=== PATIENT | female | born 1955 | race Asian ===

== ENCOUNTER → 2020-12-21 17:00 | Outpatient (CLI) | payer OTHER, SELFPAY ==
--- NOTE | ~2020-12-21 | MR_ITS ---
EXAMINATION: MR shoulder RT wo con DATE: 12/21/2020 19:02 INDICATION: Right shoulder pain TECHNIQUE: Magnetic resonance imaging (MRI) of the right shoulder was performed without intravenous c ontrast. Sequences included axial PD-weighted FS FSE, coronal oblique PD-weighted FS FSE, coronal obl ique T2-weighted FS FSE, sagittal PD-weighted FS FSE, and sagittal T1-weighted SE. COMPARISON: 08/16/2015 FINDINGS: Coracoacromial arch: The acromion undersurface is curved in morphology (type II). Small anterior subacromial spur at the a ttachment of the normal-appearing coracoacromial ligament. Mild acromioclavicular osteoarthritis with small inferiorly directed osteophytes at the lateral head of the clavicle. Rotator cuff: Severe supraspinatus and infraspinatus tendinopathy. Interval increase in size of a full-thickness te ar along the posterior aspect of the supraspinatus tendon which measures up to 6 mm AP and 2 cm media l collateral beginning near the superior facet footplate. There is additional partial thickness teari ng involving greater than half of the tendon thickness as well as both the articular and bursal sides of the more anterior supraspinatus tendon. No significant interval change in longitudinal delaminati ng split tear along the otherwise intact appearing infraspinatus tendon fibers with very small intras ubstance ganglion cyst extending up to 3.5 cm medially from the middle facet footplate. Moderate subs capularis tendinopathy with tear along the cephalad third of the lesser tuberosity footplate of the t endon. There has been progression of now mild to moderate atrophy of the supraspinatus tendon which i s decreased in craniocaudal thickness with persistent concave cephalad margin to the muscle belly. Biceps tendon, glenoid labrum and glenohumeral cartilage: Severe tendinopathy and longitudinal split tearing of the long head biceps tendon which is subluxed a cross the medial rim of the intertubercular groove across the subscapularis tendon tear defect at the cephalad aspect of the lesser tuberosity. The tear extends into the biceps labral complex at the sup erior glenoid. The remainder of the glenoid labrum appears normal. Mild partial thickness cartilage l oss along the posterior inferior aspect of the humeral head with small marginal osteophytes along the humeral head. Glenoid cartilage appears relatively preserved. Fluid: Small glenohumeral joint effusion with mild synovitis at the axillary recess. No loose osteochondral bodies. Small amount of fluid in the subacromial/subdeltoid bursa more prominent fluid in the subcora coid bursa which could be related to bursitis and/or decompression of glenohumeral joint fluid throug h the full-thickness rotator cuff tear defect. Bones: Normal marrow signal with no edema, fracture or abnormal marrow replacing process. Mild cystic change along the intertubercular groove. IMPRESSION: 1. Moderate to severe rotator cuff tendinopathy with interval increase in size of a small full-thickn ess supraspinatus tendon tear and progression in severity of now relatively high-grade partial thickn ess tearing of the more anterior supraspinatus tendon. 2. New tear involving the cephalad third of the lesser tuberosity footplate of the subscapularis tend on. 3. Bicipital tenosynovitis with severe tendinopathy and longitudinal split tearing of the long head b iceps tendon which is now subluxed across the cephalad aspect of the lesser tuberosity. The tear cont inues to involve the biceps labral complex at the superior glenoid. 4. Mild glenohumeral and moderate acromioclavicular osteoarthritis. Reviewed, dictated and finalized at location B. [employer]
== END ==
PROVIDERS: Visit Provider Orthopaedic Surgery
DX: M75.111 Incomplete rotator cuff tear or rupture of right shoulder, not specified as traumatic (principal); M75.21 Bicipital tendinitis, right shoulder; M19.011 Primary osteoarthritis, right shoulder
CPT/HCPCS: 73221

== ENCOUNTER → 2022-06-19 08:27 | Outpatient (CLI) | payer OTHER, SELFPAY ==
--- NOTE | ~2022-06-19 | MR_ITS ---
EXAMINATION: MR lumbar spine wo con DATE: 06/19/2022 09:24 INDICATION: Lumbar spine pain w/ radiculopathy into left lower extremity . TECHNIQUE: Magnetic resonance imaging (MRI) of the lumbar spine was performed without intravenous con trast. Sequences included sagittal T2-weighted FSE, sagittal T2-weighted FS FSE, sagittal T1-weighted FSE, and axial T2-weighted FSE. COMPARISON: None FINDINGS: The last fully formed and hydrated disc is designated L5-S1. Reactive endplate changes at L 3-4, otherwise the marrow signal is benign and homogenous. Conus terminates at L1. Multilevel disc he ight loss and dehydration. 3 mm retrolisthesis of L3 on L4. Mild lumbar scoliosis. The following disc levels are specifically discussed: T12-L1: The disc does not extend beyond the endplate margin. There is mild facet joint osteoarthritis . There is no neural foraminal stenosis. There is no central canal stenosis. L1-L2: Mild diffuse bulge with a small 2 mm right paracentral protrusion. There is moderate facet harpal nt osteoarthritis. There is no neural foraminal stenosis. There is no central canal stenosis. L2-L3: Mild diffuse bulge. There is moderate facet joint osteoarthritis. There is no neural foraminal stenosis. There is no central canal stenosis. L3-L4: Large diffuse bulge with a 4 mm left foraminal protrusion. There is severe facet joint osteoar thritis. There is moderate right and severe left neural foraminal stenosis. There is moderate central canal stenosis. L4-L5: Moderate diffuse bulge with a small circumferential disc present. There is severe facet joint osteoarthritis. There is mild right and moderate left neural foraminal stenosis. There is mild centra l canal stenosis. L5-S1: Mild diffuse bulge, with a small focal posterior disc rent. There is moderate facet joint oste oarthritis. There is mild right and no left neural foraminal stenosis. There is no central canal sten osis. IMPRESSION: 1. Moderate central canal and severe left neural foraminal stenosis at L3-4 caused by a combination o f severe degenerative disc disease, grade 1 anterolisthesis, and facet arthropathy. 2. Severe facet arthropathy at L3-4 and L4-5. 3. Additional multilevel mild-moderate degenerative disc change, foraminal stenosis, and central velvet l narrowing described in detail above. Reviewed, dictated and finalized at location K. IMPRESSION: 1. Moderate central canal and severe left neural foraminal stenosis at L3-4 cau sed by a combination of severe degenerative disc disease, grade 1 anterolisthes is, and facet arthropathy. 2. Severe facet arthropathy at L3-4 and L4-5. 3. Additional multilevel mild-moderate degenerative disc change, foraminal sten osis, and central canal narrowing described in detail above.
== END ==
PROVIDERS: Visit Provider Specialist
DX: M54.16 Radiculopathy, lumbar region (principal); M51.36 Other intervertebral disc degeneration, lumbar region
CPT/HCPCS: 72148